=== PATIENT | female | born 1955 | race Caucasian/White ===

== ENCOUNTER 2018-10-21 14:18 | Emergency (ER) | payer MEDICARE, MEDICAID ==
[~2018-10-21] VITALS: Ht 152.4 cm; Wt 84.2 kg
[2018-10-21 14:36] VITALS: BP 109/69
== END 2018-10-21 15:27 | disposition home or self-care (01) ==
LOC: ED 15:10
DX: B86 Scabies (principal)
CPT/HCPCS: 99283

== ENCOUNTER 2019-01-03 15:15 | Emergency (ER) | payer MEDICARE, MEDICAID ==
[~2019-01-03] VITALS: Ht 154.9 cm; Wt 85.0 kg
[2019-01-03 15:16] VITALS: BP 115/50
--- NOTE | 2019-01-03 15:25 | NUR ---
FIRST CONTACT WITH PT. PT IS CALM AND IN NO SIGNS OF DISTRESS. PT DENIES PAIN AND SAY "I DON'T REALLY NEED TO BE HERE". ALL BELONGINGS TAKEN AND PLACED IN LOCKED SECURITY. VSS.
--- NOTE | 2019-01-03 16:02 | NUR ---
PT BELONGINGS WERE TAKEN AND PLACED IN SECURITY BECAUSE IT WAS REPORTED THAT SHE WAS ON A LEGAL HOLD.
--- NOTE | 2019-01-03 16:16 | NUR ---
PT GIVEN A LIST OF RESOURCES AND SHELTERS SHE CAN GO TO. VSS. NO ACUTE SIGNS OF DISTRESS. PT DENIES ANY MEDICAL NEEDS. NO IV TO REMOVE. PT IN STABLE CONDITION AND STEADY ON FEET.
--- NOTE | 2019-01-03 16:57 | NUR ---
BELONGINGS RETURNED TO PT PRIOR TO DISCHARGE.
== END 2019-01-03 16:16 | disposition home or self-care (01) ==
LOC: ED 16:05
DX: Z72.9 Problem related to lifestyle, unspecified (principal)
CPT/HCPCS: 99283